=== PATIENT | female | born 1995 | race Caucasian/White ===

== ENCOUNTER → 2022-05-30 09:22 | Outpatient (BNVA) | payer OTHER, SELFPAY | PROVIDERS: PCP Pediatrics Adolescent Medicine; Visit Provider Nurse Practitioner Psychiatric/Mental Health | DX: F11.20 Opioid dependence, uncomplicated (principal); Z51.81 Encounter for therapeutic drug level monitoring; Z79.899 Other long term (current) drug therapy | CPT/HCPCS: 80305 ==

== ENCOUNTER → 2022-06-25 10:04 | Outpatient (BNVA) | payer OTHER, SELFPAY | PROVIDERS: PCP Pediatrics Adolescent Medicine; Visit Provider Nurse Practitioner Psychiatric/Mental Health | DX: Z51.81 Encounter for therapeutic drug level monitoring (principal); F11.90 Opioid use, unspecified, uncomplicated ==

== ENCOUNTER → 2022-07-15 09:42 | Outpatient (BNVA) | payer OTHER, SELFPAY | PROVIDERS: Visit Provider Nurse Practitioner Psychiatric/Mental Health | DX: Z51.81 Encounter for therapeutic drug level monitoring (principal); F11.20 Opioid dependence, uncomplicated | CPT/HCPCS: 96372; Q9992 ==

== ENCOUNTER 2022-08-11 11:24 | Outpatient (REF) | payer SELFPAY ==
[2022-08-11 12:41] LABS: Alanine Aminotransferase 12 U/L (0-31); Albumin Level 4.4 g/dL (3.5-5.0); Alkaline Phosphatase 57 U/L (39-117); Aspartate Amino Transferase 18 U/L (5-31); Bilirubin Direct 0.4 mg/dL (0.0-0.5); Bilirubin Total 1.7 mg/dL (0.0-1.0); Total Protein 6.9 g/dL (6.5-8.0)
[2022-08-11 12:57] LABS: HBS Num1 105.06 mIU/mL (0-7.99); HBc Num1 0.08 S/CO (0.00-0.79); HIV AB/AG Nonreactive (Nonreactive); HIV Num 1 0.06 S/CO (0.00-0.99); Hepatitis A Antibody IgM 0.14 Index (0-0.79); Hepatitis B Core Antibody Nonreactive (Nonreactive); Hepatitis B Surface Antigen Negative (Negative); ~HepC Num1 0.11 S/CO (0.00-0.79); ~Hepatitis A Antibody IgM Nonreactive (Nonreactive); ~Hepatitis B Surface Antibody REACTIVE (Nonreactive); ~Hepatitis C Antibody Nonreactive (Nonreactive)
== END 2022-08-11 11:25 | disposition home or self-care (01) ==
LOC: HO.LAB 11:24
PROVIDERS: PCP Internal Medicine; Visit Provider Nurse Practitioner Psychiatric/Mental Health
DX: Z11.4 Encounter for screening for human immunodeficiency virus [HIV] (principal); Z79.899 Other long term (current) drug therapy
CPT/HCPCS: 36415; 80076; 86704; 86706; 86709; 86803; 87340; 87389

== ENCOUNTER → 2022-08-12 09:24 | Outpatient (BNVA) | payer SELFPAY | PROVIDERS: PCP Internal Medicine; Visit Provider Nurse Practitioner Psychiatric/Mental Health | DX: F11.20 Opioid dependence, uncomplicated (principal) | CPT/HCPCS: 96372; Q9992 ==

== ENCOUNTER → 2022-09-09 09:21 | Outpatient (BNVA) | payer SELFPAY | PROVIDERS: PCP Internal Medicine; Visit Provider Nurse Practitioner Psychiatric/Mental Health | DX: F11.20 Opioid dependence, uncomplicated (principal) | CPT/HCPCS: 96372; Q9991 ==

== ENCOUNTER → 2022-10-15 09:06 | Outpatient (BNVA) | payer OTHER, SELFPAY | PROVIDERS: PCP Internal Medicine; Visit Provider Nurse Practitioner Psychiatric/Mental Health | DX: F11.20 Opioid dependence, uncomplicated (principal) | CPT/HCPCS: 80305; 81025; 96372; Q9991 ==

== ENCOUNTER → 2022-11-13 09:36 | Outpatient (BNVA) | payer OTHER, SELFPAY | PROVIDERS: PCP Internal Medicine; Visit Provider Nurse Practitioner Psychiatric/Mental Health | DX: F11.90 Opioid use, unspecified, uncomplicated (principal); Z51.81 Encounter for therapeutic drug level monitoring; Z32.01 Encounter for pregnancy test, result positive ==

== ENCOUNTER 2023-01-02 10:22 | Outpatient (AMB) | payer OTHER, SELFPAY ==
--- NOTE | 2023-01-02 10:32 | MHC.OFFVIS ---
Intake Vital Signs 01/02/23 10:45 BP 104/70 Blood Pressure Location Lt brachial Position Sitting Pulse 102 H Pulse Source Pulse Oximeter Pulse Oximetry (%) 99 Oxygen Delivery Method Room Air Intake Visit Reasons: MAT Visit/Restart Intake Note: The patient is here for a mat restart Commercial Service Technician Required: No Allergies No Known Allergies Allergy (Verified 01/02/23 10:39) Do you need a note to return to daycare/school/sports/work: No HPI MAT Visit/Restart HPI Details Patient presents for follow up Has not been seen in 2 months or so due to insurance issues Very mild withdrawal sx, has not needed to take any films, but would like to restart injection Transportation challenges, unable to wait to receive injection today--requesting to return next week for it Denies any opioid use Bright affect Review of Systems Const Reports as per HPI and Reports no additional complaints Physical Exam Vital Signs: Last Vital Signs Pulse 102 H 01/02/23 10:45 BP 104/70 01/02/23 10:45 Pulse Ox 99 01/02/23 10:45 Oxygen Delivery Method Room Air 01/02/23 10:45 Const General: cooperative, no acute distress and anxious Skin General skin exam: no rashes or lesions noted Psych Appearance: grossly normal Speech and movement: Clear speech present Thought process: Normal thought process present Thought content: Normal thought content present Insight: Good insight present (Psych) Judgement: Good judgement present (Psych) Results AMB 14 Panel Urine Drug Screen Urine Marijuana (THC) Positive Last Edit by Sparkle Rao CMA on 01/02/23 10:47 Urine Cocaine Negative Last Edit by Sparkle Rao CMA on 01/02/23 10:47 Urine Morphine Negative Last Edit by Sparkle Rao CMA on 01/02/23 10:47 Urine Methamphetamine Negative Last Edit by Sparkle Rao CMA on 01/02/23 10:47 Urine Amphetamine Positive Last Edit by Sparkle Rao CMA on 01/02/23 10:47 Urine Benzodiazepine Negative Last Edit by Sparkle Rao CMA on 01/02/23 10:47 Urine Barbiturates Negative Last Edit by Sparkle Rao CMA on 01/02/23 10:47 Urine Methadone Negative Last Edit by Sparkle Rao CMA on 01/02/23 10:47 Urine Buprenorphine Positive Last Edit by Sparkle Rao CMA on 01/02/23 10:47 Urine Tricyclic Antidepressant Negative Last Edit by Sparkle Rao CMA on 01/02/23 10:47 Urine MDMA Negative Last Edit by Sparkle Rao CMA on 01/02/23 10:47 Urine Oxycodone Negative Last Edit by Sparkle Rao CMA on 01/02/23 10:47 Urine Phencyclidine Negative Last Edit by Sparkle Rao CMA on 01/02/23 10:47 Urine Propoxyphene Negative Last Edit by Sparkle Rao CMA on 01/02/23 10:47 Results Reviewed Results Reviewed: Laboratory Last Values POC Urine Buprenorphine Positive 01/02/23 10:46 POC Urine Morphine Negative 01/02/23 10:46 POC Urine Oxycodone Negative 01/02/23 10:46 POC Urine Methadone Negative 01/02/23 10:46 POC Urine Propoxyphene Negative 01/02/23 10:46 POC Urine Barbiturates Negative 01/02/23 10:46 POC U Tricyclic Antidpr Negative 01/02/23 10:46 POC Urine PCP Negative 01/02/23 10:46 POC Ur Amphetamines Positive 01/02/23 10:46 POC Ur Methamphetamine Negative 01/02/23 10:46 POC Urine MDMA Negative 01/02/23 10:46 POC Ur Benzodiazepine Negative 01/02/23 10:46 POC Urine Cocaine Negative 01/02/23 10:46 POC Ur Marijuana (THC) Positive 01/02/23 10:46 Assessment & Plan Assessment & Plan (1) Opioid use disorder: Code(s): F11.90 - Opioid use, unspecified, uncomplicated Plan: follow up next week risk reduction discussion Orders: Orders AMB 14 Panel Urine Drug Screen 01/02/23 Z51.81 - Encounter for therapeutic drug level monitoring Coding Level of Care Code Est Pt Level 3 (92143) Diagnoses Opioid use disorder F11.90
[2023-01-02 10:45] VITALS: BP 104/70; PULSE 102; O2SAT 99
== END 2023-01-02 11:32 | disposition home or self-care (01) ==
PROVIDERS: PCP Internal Medicine; Visit Provider Nurse Practitioner Psychiatric/Mental Health
DX: F11.90 Opioid use, unspecified, uncomplicated (principal)
CPT/HCPCS: 99213

== ENCOUNTER → 2023-01-02 10:22 | Outpatient (BNVA) | payer OTHER, SELFPAY | PROVIDERS: PCP Internal Medicine; Visit Provider Nurse Practitioner Psychiatric/Mental Health | DX: F11.90 Opioid use, unspecified, uncomplicated (principal) | CPT/HCPCS: 80305 ==

== ENCOUNTER 2023-01-06 10:20 | Outpatient (REF) | payer OTHER, SELFPAY ==
[2023-01-12 08:32] LABS: Hydrocodone, Ur NEGATIVE; Oxycodone, Ur NEGATIVE
[2023-01-12 08:34] LABS: Hydromorphone, Ur NEGATIVE; Morphine, Ur NEGATIVE; Oxymorphone, Ur NEGATIVE
[2023-01-12 08:35] LABS: Norhydrocodone, Ur NEGATIVE
== END 2023-01-06 10:21 | disposition home or self-care (01) ==
LOC: HO.LNP 10:20
PROVIDERS: PCP Internal Medicine; Visit Provider Nurse Practitioner Psychiatric/Mental Health
DX: F11.20 Opioid dependence, uncomplicated (principal); Z51.81 Encounter for therapeutic drug level monitoring; Z32.00 Encounter for pregnancy test, result unknown
CPT/HCPCS: 80305; 80364; 80365; 81025; 96372; Q9991

== ENCOUNTER 2023-01-06 10:20 | Outpatient (AMB) | payer OTHER, SELFPAY ==
--- NOTE | 2023-01-06 10:25 | MHC.OFFVIS ---
Intake Vital Signs 01/06/23 10:36 BP 112/68 Blood Pressure Location Lt brachial Position Sitting Pulse 78 Pulse Source Pulse Oximeter Pulse Oximetry (%) 99 Oxygen Delivery Method Room Air Intake Visit Reasons: SUB Inj Intake Note: The patient is here for a sub inj Server Developer Required: No Allergies No Known Allergies Allergy (Verified 01/06/23 10:26) Do you need a note to return to daycare/school/sports/work: No HPI SUB Inj HPI Details Patient presents for Sublocade injection Tearful during visit as urine drug screen was positive for opiates. Denies any opiate use. This production underwriter reminded patient that sample is just a screen and can actually be a false-positive, offered to send urine sample for confirmation. Also discussed patient's positive amphetamines, she reports that she has been taking leftover Adderall however patient has been reporting this for the last several visits. She states that she now has a psychiatric provider and hopefully will be addressing her ADHD. Would like to move forward with injection. Review of Systems Const Reports as per HPI and Reports no additional complaints Physical Exam Vital Signs: Last Vital Signs Pulse 78 01/06/23 10:36 BP 112/68 01/06/23 10:36 Pulse Ox 99 01/06/23 10:36 Oxygen Delivery Method Room Air 01/06/23 10:36 Const General: cooperative, no acute distress and anxious Skin General skin exam: no rashes or lesions noted Psych Appearance: grossly normal Speech and movement: Clear speech present Thought process: Normal thought process present Thought content: Normal thought content present Insight: Good insight present (Psych) Judgement: Good judgement present (Psych) Office Meds Sublocade ER Performing Provider: Peggy Obrien CNP Administered by: Sharita Vail RN on 01/06/23 11:10 Dose Route Admin Location Lot Number Expiration Date [facility] Database Security Administrator 100 mg subcut RLQ [id number] 09/26/23 [address]-7 [employer]. Comments: T/W reviewed to monitor for heat, pain, swelling, redness, discharge, intolerable pain, fever at the INJ site, call the [facility] with questions/concerns. Reviewed can test positive for BUP, up to 12 months after d/c Sublocade. Reviewed, to leave the INJ alone and monitor. Pt verbalized understanding. Pt tolerated injection. Results AMB 14 Panel Urine Drug Screen Urine Marijuana (THC) Positive Last Edit by Sparkle Rao CMA on 01/06/23 10:38 Urine Cocaine Negative Last Edit by Sparkle Rao CMA on 01/06/23 10:38 Urine Morphine Positive Last Edit by Sparkle Rao CMA on 01/06/23 10:38 Urine Methamphetamine Negative Last Edit by Sparkle Rao CMA on 01/06/23 10:38 Urine Amphetamine Positive Last Edit by Sparkle Rao CMA on 01/06/23 10:38 Urine Benzodiazepine Negative Last Edit by Sparkle Rao CMA on 01/06/23 10:38 Urine Barbiturates Negative Last Edit by Sparkle Rao CMA on 01/06/23 10:38 Urine Methadone Negative Last Edit by Sparkle Rao CMA on 01/06/23 10:38 Urine Buprenorphine Positive Last Edit by Sparkle Rao CMA on 01/06/23 10:38 Urine Tricyclic Antidepressant Negative Last Edit by Sparkle Rao CMA on 01/06/23 10:38 Urine MDMA Negative Last Edit by Sparkle Rao CMA on 01/06/23 10:38 Urine Oxycodone Negative Last Edit by Sparkle Rao CMA on 01/06/23 10:38 Urine Phencyclidine Negative Last Edit by Sparkle Rao CMA on 01/06/23 10:38 Urine Propoxyphene Negative Last Edit by Sparkle Rao CMA on 01/06/23 10:38 AMB Test Urine AMB Test Urine Negative Last Edit by Saprkle Rao CMA on 01/06/23 10:40 Results Reviewed Results Reviewed: Laboratory Last Values [facility] Negative 01/06/23 10:26 POC Urine Buprenorphine Positive 01/06/23 10:26 POC Urine Morphine Positive 01/06/23 10:26 POC Urine Oxycodone Negative 01/06/23 10:26 POC Urine Methadone Negative 01/06/23 10:26 POC Urine Propoxyphene Negative 01/06/23 10:26 POC Urine Barbiturates Negative 01/06/23 10:26 POC U Tricyclic Antidpr Negative 01/06/23 10:26 POC Urine PCP Negative 01/06/23 10:26 POC Ur Amphetamines Positive 01/06/23 10:26 POC Ur Methamphetamine Negative 01/06/23 10:26 POC Urine MDMA Negative 01/06/23 10:26 POC Ur Benzodiazepine Negative 01/06/23 10:26 POC Urine Cocaine Negative 01/06/23 10:26 POC Ur Marijuana (THC) Positive 01/06/23 10:26 Assessment & Plan Assessment & Plan (1) Opioid use disorder: Code(s): F11.90 - Opioid use, unspecified, uncomplicated Plan: Tolerated injection Risk reduction discussion Follow-up 4 weeks Orders: Orders Opiates GCMS Expanded, Ur 01/06/23 F11.90 - Opioid use, unspecified, uncomplicated AMB Buprenorphine Injection 01/06/23 F11.90 - Opioid use, unspecified, uncomplicated AMB 14 Panel Urine Drug Screen 01/06/23 Z51.81 - Encounter for therapeutic drug level monitoring AMB HCG Urine Test 01/06/23 Z32.01 - Encounter for test, result positive, Z32.02 - Encounter for test, result negative Coding Level of Care Code Est Pt Level 4 (57660) Diagnoses Opioid use disorder F11.90
[2023-01-06 10:36] VITALS: BP 112/68; PULSE 78; O2SAT 99
== END 2023-01-06 11:16 | disposition home or self-care (01) ==
LOC: HO.HCC 10:21
PROVIDERS: PCP Internal Medicine; Visit Provider Nurse Practitioner Psychiatric/Mental Health
DX: F11.90 Opioid use, unspecified, uncomplicated (principal)
CPT/HCPCS: 99214

== ENCOUNTER 2023-02-03 10:16 | Outpatient (AMB) | payer OTHER, SELFPAY ==
--- NOTE | 2023-02-03 10:24 | MHC.OFFVIS ---
Intake Intake Visit Reasons: SUB Inj Intake Note: the patient presents for a sub inj Shadowgraph Scale Operator Required: No Allergies No Known Allergies Allergy (Verified 02/03/23 10:24) Do you need a note to return to daycare/school/sports/work: No Coding Diagnoses
--- NOTE | 2023-02-03 10:31 | AM.OFFVISNUR ---
Intake Vital Signs 02/03/23 10:33 BP 108/66 Blood Pressure Location Rt radial Position Sitting Pulse 79 Pulse Source Pulse Oximeter Pulse Oximetry (%) 99 Oxygen Delivery Method Room Air Intake Visit Reasons: SUB Inj Intake Note: the patient presents for a mat visit Back Tender Cloth Printing Required: No Allergies No Known Allergies Allergy (Verified 02/03/23 10:34) Nursing Note Pt here for four week OUD follow up. Pt reports doing well on Sublocade INJ. Pt states is following with therapist and psychiatrist, pt states Wellbutrin increased last month to help address depression, ADHD. Pt reports past week, no access to ADHD pills, has been taking Caffeine tablets OTC, 1 tablet. Pt reports has helped mitigate low energy. Pt reports without illicit ADHD meds, low energy, low motivation. Reviewed UDS results from last visit, positive Codeine. Pt states can not remember taking Codeine. Pt tolerated injection. Appt in 4 weeks. Office Meds Sublocade ER Performing Provider: Peggy Obrien CNP Administered by: Sharita Vail RN on 02/03/23 11:07 Dose Route Admin Location Lot Number Expiration Date [place] Obstetrician Gynecologist 100 mg subcut LLQ [id number] 11/26/23 [address]-7 [employer]. Comments: T/W assessed for s/s of infection, no pain, no redness, no swelling, no exudate. Pt reminded to monitor for above and call the [facility]. Pt tolerated injection. Coding Diagnoses Assessment & Plan Assessment & Plan Orders: Orders AMB Buprenorphine Injection Today F11.90 - Opioid use, unspecified, uncomplicated
[2023-02-03 10:33] VITALS: BP 108/66; PULSE 79; O2SAT 99
== END 2023-02-03 11:03 | disposition home or self-care (01) ==
LOC: HO.HCC 10:16
PROVIDERS: PCP Internal Medicine; Visit Provider Nurse Practitioner Psychiatric/Mental Health
DX: F11.90 Opioid use, unspecified, uncomplicated (principal)

== ENCOUNTER → 2023-02-03 10:16 | Outpatient (BNVA) | payer OTHER, SELFPAY | PROVIDERS: PCP Internal Medicine; Visit Provider Nurse Practitioner Psychiatric/Mental Health | DX: F11.90 Opioid use, unspecified, uncomplicated (principal); Z51.81 Encounter for therapeutic drug level monitoring; Z79.899 Other long term (current) drug therapy | CPT/HCPCS: 96372; Q9991 ==

== ENCOUNTER 2023-03-10 10:05 | Outpatient (AMB) | payer OTHER, SELFPAY ==
[2023-03-10 10:23] VITALS: BP 116/72; PULSE 90; O2SAT 99
--- NOTE | 2023-03-10 10:23 | AM.OFFVISNUR ---
Intake Vital Signs 03/10/23 10:23 BP 116/72 Blood Pressure Location Lt radial Position Sitting Pulse 90 Pulse Source Pulse Oximeter Pulse Oximetry (%) 99 Oxygen Delivery Method Room Air Intake Visit Reasons: SUB Inj Intake Note: The patient presents for a mat visit Stock Saw Operator Required: No Allergies No Known Allergies Allergy (Verified 03/10/23 10:24) Do you need a note to return to daycare/school/sports/work: No Results AMB 14 Panel Urine Drug Screen Urine Marijuana (THC) Negative Last Edit by Sparkle Rao CMA on 03/10/23 10:34 Urine Cocaine Negative Last Edit by Sparkle Rao CMA on 03/10/23 10:34 Urine Morphine Negative Last Edit by Sparkle Rao CMA on 03/10/23 10:34 Urine Methamphetamine Negative Last Edit by Sparkle Rao CMA on 03/10/23 10:34 Urine Amphetamine Negative Last Edit by Sparkle Rao CMA on 03/10/23 10:34 Urine Benzodiazepine Negative Last Edit by Sparkle Rao CMA on 03/10/23 10:34 Urine Barbiturates Negative Last Edit by Sparkle Rao CMA on 03/10/23 10:34 Urine Methadone Negative Last Edit by Sparkle Rao CMA on 03/10/23 10:34 Urine Buprenorphine Positive Last Edit by Sparkle Rao CMA on 03/10/23 10:34 Urine Tricyclic Antidepressant Negative Last Edit by Sparkle Rao CMA on 03/10/23 10:34 Urine MDMA Negative Last Edit by Sparkle Rao CMA on 03/10/23 10:34 Urine Oxycodone Negative Last Edit by Sparkle Rao CMA on 03/10/23 10:34 Urine Phencyclidine Negative Last Edit by Sparkle Rao CMA on 03/10/23 10:34 Urine Propoxyphene Negative Last Edit by Sparkle Rao CMA on 03/10/23 10:34 AMB Test Urine AMB Test Urine Negative Last Edit by Sparkle Rao CMA on 03/10/23 10:35 Coding Assessment & Plan Assessment & Plan Orders: Orders AMB HCG Urine Test Today Z32.01 - Encounter for test, result positive, Z32.02 - Encounter for test, result negative AMB 14 Panel Urine Drug Screen Today Z51.81 - Encounter for therapeutic drug level monitoring
== END 2023-03-10 11:21 | disposition home or self-care (01) ==
LOC: HO.HCC 10:05
PROVIDERS: PCP Internal Medicine
DX: Z32.02 Encounter for pregnancy test, result negative (principal); Z32.01 Encounter for pregnancy test, result positive; Z51.81 Encounter for therapeutic drug level monitoring; F11.90 Opioid use, unspecified, uncomplicated
CPT/HCPCS: Q9991

== ENCOUNTER → 2023-03-10 10:05 | Outpatient (BNVA) | payer OTHER, SELFPAY | PROVIDERS: PCP Internal Medicine | DX: Z51.81 Encounter for therapeutic drug level monitoring (principal); F11.20 Opioid dependence, uncomplicated | CPT/HCPCS: 80305; 81025; 96372 ==

== ENCOUNTER 2023-04-07 10:01 | Outpatient (AMB) | payer OTHER, SELFPAY ==
--- NOTE | 2023-04-07 10:20 | MHC.OFFVIS ---
Intake Vital Signs 04/07/23 10:24 BP 110/66 Blood Pressure Location Lt radial Position Sitting Pulse 116 H Pulse Source Pulse Oximeter Pulse Oximetry (%) 95 Oxygen Delivery Method Room Air Intake Visit Reasons: sub inj Intake Note: the patient presents for a sub inj Orthopaedic Technologist Required: No Allergies No Known Allergies Allergy (Verified 04/07/23 10:25) Do you need a note to return to daycare/school/sports/work: No HPI sub inj HPI Details Patient presents for follow up and Sublocade injection Doing well with recovery, still working and looking forward to vacation next month No questions or concerns at this time Review of Systems Const Reports as per HPI and Reports no additional complaints Physical Exam Vital Signs: Last Vital Signs Pulse 116 H 04/07/23 10:24 BP 110/66 04/07/23 10:24 Pulse Ox 95 04/07/23 10:24 Oxygen Delivery Method Room Air 04/07/23 10:24 Const General: cooperative and no acute distress Skin General skin exam: no rashes or lesions noted Psych Appearance: grossly normal Speech and movement: Clear speech present Thought process: Normal thought process present Thought content: Normal thought content present Insight: Good insight present (Psych) Judgement: Good judgement present (Psych) Office Meds Sublocade 100 mg/0.5 mL solution,extended release subcutaneous syringe Performing Provider: Peggy Obrien CNP Performing Location: [facility] Administered by: Alexandria Love NP on 04/07/23 11:16 Dose Route Admin Location Dispensed Lot Number Expiration Date [facility] Manager Of Marketing 100 mg subcut LLQ 0.5 mL [id number] 01/27/24 [address]-8 [employer]. Comments: Pt tolerated injection well. Educated on signs and symptoms of infection, encouraged to call [facility] with any questions or concerns. Assessment & Plan Assessment & Plan (1) Opioid use disorder: Code(s): F11.90 - Opioid use, unspecified, uncomplicated Plan: Tolerated injection Follow-up 4 weeks Orders: Orders AMB Buprenorphine Injection - Patient Supplied Today F11.90 - Opioid use, unspecified, uncomplicated Coding Level of Care Code Est Pt Level 3 (38862) Diagnoses Opioid use disorder F11.90
[2023-04-07 10:24] VITALS: BP 110/66; PULSE 116; O2SAT 95
== END 2023-04-07 11:39 | disposition home or self-care (01) ==
PROVIDERS: PCP Internal Medicine; Visit Provider Nurse Practitioner Psychiatric/Mental Health
DX: F11.90 Opioid use, unspecified, uncomplicated (principal)
CPT/HCPCS: 99213

== ENCOUNTER → 2023-04-07 10:01 | Outpatient (BNVA) | payer OTHER, SELFPAY | PROVIDERS: PCP Internal Medicine; Visit Provider Nurse Practitioner Psychiatric/Mental Health | DX: F11.20 Opioid dependence, uncomplicated (principal) | CPT/HCPCS: 96372; Q9992 ==

== ENCOUNTER 2023-05-12 09:12 | Outpatient (AMB) | payer OTHER, SELFPAY ==
[2023-05-12 09:30] VITALS: BP 110/70; PULSE 93; O2SAT 97
--- NOTE | 2023-05-12 09:30 | A.OFFVIS_ITS ---
Intake Vital Signs 05/12/23 09:30 BP 110/70 Blood Pressure Location Lt radial Position Sitting Pulse 93 Pulse Source Pulse Oximeter Pulse Oximetry (%) 97 Oxygen Delivery Method Room Air Intake Visit Reasons: sub inj Intake Note: the patient presents for a sub inj Municipal Firefighter Required: No Allergies No Known Allergies Allergy (Verified 05/12/23 09:31) Do you need a note to return to daycare/school/sports/work: No HPI sub inj HPI Details Pt presents for treatment and follow up for ALBINO. Denies any concerns related to recovery this past month, Denies any breakthrough withdrawal symptoms or cravings. Discussed her recent cruise she took, was very excited about it. Reflected with pt about how her recovery enables her to do things like vacations in the present, where in the past she never would have been able to. Review of Systems Const Reports as per HPI Physical Exam Vital Signs: Last Vital Signs Pulse 93 05/12/23 09:30 BP 110/70 05/12/23 09:30 Pulse Ox 97 05/12/23 09:30 Oxygen Delivery Method Room Air 05/12/23 09:30 Const General: cooperative, healthy appearing, comfortable and no acute distress Resp Effort & Inspection: normal respiratory effort Skin General skin exam: no rashes or lesions noted Psych Appearance: grossly normal Mental Status: mental status grossly normal Speech and movement: Normal speech and movement present Affect: normal affect Attitude: cooperative Office Meds Sublocade 100 mg/0.5 mL solution,extended release subcutaneous syringe Performing Provider: Peggy Obrien CNP Performing Location: [facility] Administered by: Neisha Daniels RN on 05/12/23 09:55 Dose Route Admin Location Dispensed Lot Number Expiration Date [facility] Manager Nursing Home 100 mg subcut RLQ 0.5 mL [id number] 03/28/24 [address]-0 [employer] Comments: Pt tolerated injection well, denies concerns about previous injection. Educated on signs and symptoms of infection, encouraged to call [facility] with any questions or concerns, pt verbalized understanding. Results AMB Test Urine AMB Test Urine Negative Last Edit by Sparkle Rao CMA on 09:32 Results Reviewed Results Reviewed: Laboratory Last Values [facility] Negative 05/12/23 09:32 Assessment & Plan Assessment & Plan (1) Opioid use disorder: Code(s): F11.90 - Opioid use, unspecified, uncomplicated Plan: Tolerated injection well, Follow up in 4 weeks assessment and plan reviewewd with TARUN Love Orders: Orders AMB HCG Urine Test 05/12/23 Z32.01 - Encounter for test, result positive, Z32.02 - Encounter for test, result negative AMB Buprenorphine Injection - Patient Supplied 05/12/23 F11.90 - Opioid use, unspecified, uncomplicated Coding Level of Care Code Est Pt Level 3 (68589) Diagnoses Opioid use disorder F11.90
== END 2023-05-12 09:55 | disposition home or self-care (01) ==
PROVIDERS: PCP Internal Medicine; Visit Provider Nurse Practitioner Psychiatric/Mental Health
DX: F11.90 Opioid use, unspecified, uncomplicated (principal)
CPT/HCPCS: 99213

== ENCOUNTER → 2023-05-12 09:12 | Outpatient (BNVA) | payer OTHER, SELFPAY | PROVIDERS: PCP Internal Medicine; Visit Provider Nurse Practitioner Psychiatric/Mental Health | DX: F11.20 Opioid dependence, uncomplicated (principal); Z32.02 Encounter for pregnancy test, result negative; Z51.81 Encounter for therapeutic drug level monitoring; Z79.899 Other long term (current) drug therapy | CPT/HCPCS: 81025; 96372; Q9992 ==

== ENCOUNTER 2023-07-16 09:37 | Outpatient (AMB) | payer OTHER, SELFPAY ==
--- NOTE | 2023-07-16 09:45 | AM.OFFVISNUR ---
Intake Vital Signs 07/16/23 09:51 BP 120/70 Blood Pressure Location Rt radial Position Sitting Respiration 22 H Pulse 113 H Pulse Source Pulse Oximeter Pulse Oximetry (%) 93 Oxygen Delivery Method Room Air Intake Visit Reasons: Sub Inj Allergies No Known Allergies Allergy (Verified 05/12/23 09:31) Nursing Note Patient in office today for injection. She just got established with health insurance after 3 months of not having any according to patient. She stated it was hard but I got through , regarding not having her injection. 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 She is currently working on applications to other salons and her goal is to obtain her mass cosmetology liscence. She verbally understands to call [facility] with any concerns or questions. She will she Alexandria next visit. Office Meds Sublocade 100 mg/0.5 mL solution,extended release subcutaneous syringe Performing Provider: Peggy Obrien CNP Performing Location: [facility] Administered by: Carlota Kerr RN on 07/16/23 09:55 Dose Route Admin Location Dispensed Lot Number Expiration Date [facility] Technology Development Intern 100 mg subcut LLQ 0.5 mL [id number] 07/30/24 [address]-0 [employer]. Comments: Pt tolerated injection well. Educated on S/S of infection. Encouraged to call [facility] with questions/concerns. Coding Assessment & Plan Assessment & Plan Orders: Orders AMB Buprenorphine Injection Today F11.90 - Opioid use, unspecified, uncomplicated
[2023-07-16 09:51] VITALS: BP 120/70; PULSE 113; RESP 22; O2SAT 93
== END 2023-07-16 10:07 | disposition home or self-care (01) ==
PROVIDERS: PCP Internal Medicine
DX: F11.90 Opioid use, unspecified, uncomplicated (principal)

== ENCOUNTER → 2023-07-16 09:37 | Outpatient (BNVA) | payer OTHER, SELFPAY | PROVIDERS: PCP Internal Medicine | DX: F11.20 Opioid dependence, uncomplicated (principal) | CPT/HCPCS: 96372; Q9991 ==

== ENCOUNTER 2023-08-11 10:04 | Outpatient (AMB) | payer OTHER, SELFPAY ==
--- NOTE | 2023-08-11 10:08 | MHC.AM.SUB ---
Intake Intake Visit Reasons: MAT Visit/Sub Inj Allergies No Known Allergies Allergy (Verified 05/12/23 09:31) HPI MAT Visit/Sub Inj HPI Details Patient presents for monthly injection appointment She has been tolerating the injection well, does report more discomfort with the injection when it is injected into her right abd Has no concerns for recovery at this time although she reports it has been a difficult month for her family because her niece was hospitalized psychiatrically for 10 days She reports niece is home now and doing a little better She is asking for more information at her next visit regarding family planning and the sublocade injections Review of Systems Const Reports as per HPI Physical Exam Const General: cooperative, healthy appearing and no acute distress Resp Effort & Inspection: normal respiratory effort and able to speak in complete sentences Skin General skin exam: no rashes or lesions noted Psych Appearance: grossly normal Mental Status: mental status grossly normal Speech and movement: Normal speech and movement present Affect: normal affect Attitude: cooperative Thought process: Normal thought process present Office Meds Sublocade 100 mg/0.5 mL solution,extended release subcutaneous syringe Performing Provider: Alexandria Love NP Performing Location: [facility] Administered by: Alexandria Love NP on 08/11/23 10:50 Dose Route Admin Location Dispensed Lot Number Expiration Date [facility] Video Game Tester 100 mg subcut 0.5 mL [id number] 03/28/24 [address]-3 [employer]. Comments: Pt tolerated injection well, no redness or warmth noted to prior injection sites. Reviewed signs and sx of infection and encouraged pt to call [facility] with questions or concerns. Assessment & Plan Assessment & Plan (1) Opioid use disorder: Code(s): F11.90 - Opioid use, unspecified, uncomplicated Plan: -Tolerating injection -Follow up 4 weeks Orders: Orders AMB Buprenorphine Injection Today F11.90 - Opioid use, unspecified, uncomplicated Coding Level of Care Code Est Pt Level 3 (46997) Diagnoses Opioid use disorder F11.90
== END 2023-08-11 10:32 | disposition home or self-care (01) ==
PROVIDERS: PCP Internal Medicine; Visit Provider Nurse Practitioner Family
DX: F11.90 Opioid use, unspecified, uncomplicated (principal)
CPT/HCPCS: 99213

== ENCOUNTER → 2023-08-11 10:04 | Outpatient (BNVA) | payer OTHER, SELFPAY | PROVIDERS: PCP Internal Medicine; Visit Provider Nurse Practitioner Family | DX: F11.90 Opioid use, unspecified, uncomplicated (principal) | CPT/HCPCS: 96372; Q9991 ==

== ENCOUNTER 2023-09-08 10:24 | Outpatient (AMB) | payer OTHER, SELFPAY ==
--- NOTE | 2023-09-08 10:34 | MHC.AM.SUB ---
Intake Intake Visit Reasons: sub inj Intake Note: the patient presents for a sub inj Broker Agricultural Produce Required: No Allergies No Known Allergies Allergy (Verified 09/08/23 10:34) Do you need a note to return to daycare/school/sports/work: No Coding
--- NOTE | 2023-09-08 10:39 | AM.OFFVISNUR ---
Intake Vital Signs 09/08/23 10:47 BP 124/80 Blood Pressure Location Lt radial Position Sitting Pulse 115 H Pulse Source Pulse Oximeter Pulse Oximetry (%) 98 Oxygen Delivery Method Room Air Intake Visit Reasons: sub inj Intake Note: the patient presents for a sub inj Allergies No Known Allergies Allergy (Verified 09/08/23 10:34) Do you need a note to return to daycare/school/sports/work: No Nursing Note Patient in office for sublocade injection, no stated or noted concerns from previous injection. Alert and oriented x4, in good spirits, smiling and talkative. Denies any break through cravings, and states she is doing well with recovery. Will see in office in 4 weeks. Office Meds Vivitrol 380 mg intramuscular suspension,extended release Performing Provider: Peggy Obrien CNP Performing Location: [facility] Administered by: Carlota Kerr RN on 09/08/23 11:22 Dose Route Admin Location Dispensed Lot Number Expiration Date [employer] [facility] Attendant 380 mg IM LLQ 380 mg 08/27/24 [address]-40 [employer] Comments: Patient tolerated injection well with no stated or noted complaints or complications, she agrees to call [facility] with any comments or concerns. Coding Assessment & Plan Assessment & Plan Orders: Orders AMB HCG Urine Test Today Z32.01 - Encounter for test, result positive, Z32.02 - Encounter for test, result negative AMB Naltrexone Injection - Practice Supplied Today F11.90 - Opioid use, unspecified, uncomplicated
[2023-09-08 10:47] VITALS: BP 124/80; PULSE 115; O2SAT 98
== END 2023-09-08 11:05 | disposition home or self-care (01) ==
PROVIDERS: PCP Internal Medicine
DX: F11.90 Opioid use, unspecified, uncomplicated (principal)

== ENCOUNTER → 2023-09-08 10:24 | Outpatient (BNVA) | payer OTHER, SELFPAY | PROVIDERS: PCP Internal Medicine | DX: F11.20 Opioid dependence, uncomplicated (principal); Z51.81 Encounter for therapeutic drug level monitoring | CPT/HCPCS: 96372; J2315 ==

== ENCOUNTER 2023-10-14 15:06 | Outpatient (AMB) | payer OTHER, SELFPAY ==
--- NOTE | 2023-10-14 15:05 | AM.OFFVISNUR ---
Intake Vital Signs 10/14/23 15:08 BP 140/82 H Blood Pressure Location Lt brachial Position Sitting Pulse 104 H Pulse Source Pulse Oximeter Pulse Oximetry (%) 99 Oxygen Delivery Method Room Air Intake Visit Reasons: sub inj Allergies No Known Allergies Allergy (Verified 10/14/23 15:09) Office Meds Sublocade 100 mg/0.5 mL solution,extended release subcutaneous syringe Performing Provider: Peggy Obrien CNP Performing Location[facility] Administered by: Carlota Kerr RN on 10/14/23 15:18 Dose Route Admin Location Dispensed Lot Number Expiration Date [facility] Mutuel Department Manager 100 mg subcut RLQ 0.5 mL [id number] 02/28/24 [address]-2 [employer]. Coding Assessment & Plan Assessment & Plan Orders: Orders AMB Buprenorphine Injection Today Peggy Obrien CNP F11.90 - Opioid use, unspecified, uncomplicated Medications: Refilled buprenorphine ER (Sublocade) once every 28 days 100 mg (0.5 mL) subcut ONCE 0.5 mL 5RF Alexandria Love NP
[2023-10-14 15:08] VITALS: BP 140/82; PULSE 104; O2SAT 99
== END 2023-10-14 15:49 | disposition home or self-care (01) ==
PROVIDERS: PCP Internal Medicine
DX: F11.90 Opioid use, unspecified, uncomplicated (principal)

== ENCOUNTER → 2023-10-14 15:06 | Outpatient (BNVA) | payer OTHER, SELFPAY | PROVIDERS: PCP Internal Medicine | DX: F11.20 Opioid dependence, uncomplicated (principal); Z51.81 Encounter for therapeutic drug level monitoring; Z79.899 Other long term (current) drug therapy | CPT/HCPCS: 96372; Q9991 ==

== ENCOUNTER 2023-11-11 15:13 | Outpatient (AMB) | payer OTHER, SELFPAY ==
[2023-11-11 15:12] VITALS: BP 128/88; PULSE 80; O2SAT 100
--- NOTE | 2023-11-11 15:16 | A.OFFVISCC_ITS ---
Vital Signs 11/11/23 15:12 BP 128/88 Blood Pressure Location Rt brachial Position Sitting Pulse 80 Pulse Source Pulse Oximeter Pulse Oximetry (%) 100 Oxygen Delivery Method Room Air Intake Visit Reasons: MAT/ Sub inj Allergies No Known Allergies Allergy (Verified 10/14/23 15:09) HPI HPI MAT/ Sub inj: Details: patient presents for follow up and Sublocade injection reports she is doing well with recovery still working at [employer] has a car that her brother gave to her bright affect no questions or concerns at this time Review of Systems Const Reports as per HPI and Reports no additional complaints Physical Exam Vital Signs: Last Vital Signs Pulse 80 11/11/23 15:12 BP 128/88 11/11/23 15:12 Pulse Ox 100 11/11/23 15:12 Oxygen Delivery Method Room Air 11/11/23 15:12 Const General: cooperative, healthy appearing and no acute distress Resp Effort & Inspection: normal respiratory effort and able to speak in complete sentences Skin General skin exam: no rashes or lesions noted Psych Appearance: grossly normal Mental Status: mental status grossly normal Speech and movement: Normal speech and movement present Affect: normal affect Attitude: cooperative Thought process: Normal thought process present Office Meds Sublocade 100 mg/0.5 mL solution,extended release subcutaneous syringe Performing Provider: Peggy Obrien CNP Performing Location: [facility] Administered by: Carlota Kerr RN on 11/11/23 16:04 Dose Route Admin Location Dispensed Lot Number Expiration Date [facility] Financial Services Intern 100 mg subcut LLQ 0.5 mL [id number] 02/28/24 [address]-7 [employer]. Assessment & Plan Assessment & Plan (1) Opioid use disorder: Code(s): F11.90 - Opioid use, unspecified, uncomplicated Category: Medical Plan: * tolerated injection * follow up 4 weeks Orders: Orders AMB Buprenorphine Injection 11/11/23 F11.90 - Opioid use, unspecified, uncomplicated AMB Buprenorphine Injection 11/11/23 Z79.899 - Other rn long term care (current) drug therapy Medications: New Sublocade ER (buprenorphine) 300 mg (1.5 mL) subcut ONCE 1.5 mL 0RF NS F11.90 - Opioid use, unspecified, uncomplicated
== END 2023-11-11 15:44 | disposition home or self-care (01) ==
PROVIDERS: PCP Internal Medicine
DX: F11.90 Opioid use, unspecified, uncomplicated (principal)
CPT/HCPCS: 99213

== ENCOUNTER → 2023-11-11 15:13 | Outpatient (BNVA) | payer OTHER, SELFPAY | PROVIDERS: PCP Internal Medicine | DX: F11.90 Opioid use, unspecified, uncomplicated (principal) | CPT/HCPCS: 96372; Q9991 ==

== ENCOUNTER 2023-12-09 15:41 | Outpatient (AMB) | payer SELFPAY ==
--- NOTE | 2023-12-09 15:40 | MHC.AM.SUB ---
Vital Signs 12/09/23 15:43 BP 124/62 Blood Pressure Location Lt brachial Position Sitting Pulse 99 Pulse Source Pulse Oximeter Pulse Oximetry (%) 99 Oxygen Delivery Method Room Air Intake Visit Reasons: MAT visit/Sub inj Allergies No Known Allergies Allergy (Verified 10/14/23 15:09) HPI HPI MAT visit/Sub inj: Details: Patient presents for monthly injection Has been tolerating the injection well States things have been going well, working time study clerk as hairdresser No concerns for recovery Doing well overall HPI Comments Details: Patient presents for MAT visit Review of Systems Const Reports as per HPI Physical Exam Vital Signs: Last Vital Signs Pulse 99 12/09/23 15:43 BP 124/62 12/09/23 15:43 Pulse Ox 99 12/09/23 15:43 Oxygen Delivery Method Room Air 12/09/23 15:43 Const General: cooperative and no acute distress Resp Effort & Inspection: normal respiratory effort and able to speak in complete sentences Psych Appearance: grossly normal Mental Status: mental status grossly normal Speech and movement: Normal speech and movement present Affect: normal affect Attitude: cooperative Thought process: Normal thought process present Office Meds Sublocade 100 mg/0.5 mL solution,extended release subcutaneous syringe Performing Provider: Alexandria Love NP Performing Location: [facility] Administered by: Alexandria Love NP on 12/09/23 15:32 Dose Route Admin Location Dispensed Lot Number Expiration Date [facility] Cookie Mixer Helper 100 mg subcut RLQ 0.5 mL [id number] 03/28/24 [address]-9 [employer]. Comments: Pt tolerated well, no signs or symptoms of infection to previous injection site Assessment & Plan Assessment & Plan (1) Opioid use disorder: Code(s): F11.90 - Opioid use, unspecified, uncomplicated Category: Medical Plan: -Tolerating injection well- continue sublocade -FOllow up 4 weeks Orders: Orders AMB Buprenorphine Injection 12/09/23 F11.90 - Opioid use, unspecified, uncomplicated
[2023-12-09 15:43] VITALS: BP 124/62; PULSE 99; O2SAT 99
== END 2023-12-09 16:24 | disposition home or self-care (01) ==
PROVIDERS: PCP Internal Medicine
DX: F11.90 Opioid use, unspecified, uncomplicated (principal)
CPT/HCPCS: 99213

== ENCOUNTER → 2023-12-09 15:41 | Outpatient (BNVA) | payer SELFPAY | PROVIDERS: PCP Internal Medicine | DX: F11.90 Opioid use, unspecified, uncomplicated (principal) | CPT/HCPCS: 96372; Q9991 ==

== ENCOUNTER 2024-01-06 15:40 | Outpatient (AMB) | payer OTHER, SELFPAY ==
[2024-01-06 15:47] VITALS: BP 120/70; PULSE 77; RESP 19; TEMP 36.6; O2SAT 98
--- NOTE | 2024-01-06 15:47 | AM.OFFVISNUR ---
Vital Signs 01/06/24 15:47 BP 120/70 Blood Pressure Location Lt brachial Position Sitting Respiration 19 Pulse 77 Pulse Source Pulse Oximeter Temp 98 F Pulse Oximetry (%) 98 Intake Visit Reasons: Sub inj Allergies No Known Allergies Allergy (Verified 10/14/23 15:09) Nursing Note Patient to clinic today for Sublocade 100mg injection. Alert and oriented x4, denies any complications with previous injection, injection today given per orders in the LLG. Will follow up in 4 weeks with RN. Office Meds Sublocade 100 mg/0.5 mL solution,extended release subcutaneous syringe Performing Provider: Peggy Obrien CNP Performing Location: [facility] Administered by: Carlota Kerr RN on 01/06/24 15:54 Dose Route Admin Location Dispensed Lot Number Expiration Date [facility] Egg Tester 100 mg subcut LLQ 0.5 mL [id number] 07/30/24 [address]-7 [employer]. Assessment & Plan Assessment & Plan Orders: Orders AMB Buprenorphine Injection Today F11.90 - Opioid use, unspecified, uncomplicated Medications: New Sublocade ER (buprenorphine) 100 mg (0.5 mL) subcut ONCE 0.5 mL 0RF NS F11.90 - Opioid use, unspecified, uncomplicated
== END 2024-01-06 16:02 | disposition home or self-care (01) ==
PROVIDERS: PCP Internal Medicine
DX: F11.90 Opioid use, unspecified, uncomplicated (principal)

== ENCOUNTER → 2024-01-06 15:40 | Outpatient (BNVA) | payer SELFPAY | PROVIDERS: PCP Internal Medicine | DX: F11.20 Opioid dependence, uncomplicated (principal) | CPT/HCPCS: 96372; Q9991 ==

== ENCOUNTER 2024-02-03 15:21 | Outpatient (AMB) | payer MEDICAID, SELFPAY ==
--- NOTE | 2024-02-03 16:00 | AM.OFFVISNUR ---
Intake Visit Reasons: Sub inj Allergies No Known Allergies Allergy (Verified 10/14/23 15:09) Nursing Note Patient Presents for Sublocade Injection. Current Dose 100mg . Given in RLQ the with no noted or stated complication. Denies any issues with previous injection. Denies symptoms, and denies any break through cravings. Will follow up with RN and provider in 4 weeks for injection. Office Meds Sublocade 100 mg/0.5 mL solution,extended release subcutaneous syringe Performing Provider: Peggy Obrien CNP Performing Location: [facility] Administered by: Carlota Kerr RN on 02/04/24 09:07 Dose Route Admin Location Dispensed Lot Number Expiration Date [facility] Pillow Filler 100 mg subcut RLQ 0.5 mL [id number] 11/27/[address] [address]-7 [facility]. Assessment & Plan Assessment & Plan Orders: Orders AMB Buprenorphine Injection 02/03/24 F11.90 - Opioid use, unspecified, uncomplicated
== END 2024-02-03 15:47 | disposition home or self-care (01) ==
PROVIDERS: PCP Internal Medicine
DX: F11.90 Opioid use, unspecified, uncomplicated (principal)

== ENCOUNTER → 2024-02-03 15:21 | Outpatient (BNVA) | payer SELFPAY | PROVIDERS: PCP Internal Medicine | DX: F11.90 Opioid use, unspecified, uncomplicated (principal) | CPT/HCPCS: 96372; Q9991 ==